=== PATIENT | female | born 1985 | race Caucasian/White ===

== ENCOUNTER 2021-09-27 08:37 | Emergency (ER) | payer MEDICAID ==
[2021-09-27 09:18] LABS: BASOPHILS # (AUTO) 0.1 10^3/uL (0.0-0.1); BASOPHILS % (AUTO) 0.6 %; EOSINOPHILS # (AUTO) 0.1 10^3/uL (0.0-0.7); EOSINOPHILS % (AUTO) 0.7 %; HCT - HEMATOCRIT 41.3 % (37.0-47.0); LYMPHOCYTES # (AUTO) 2.5 10^3/uL (1.5-3.5); LYMPHOCYTES % (AUTO) 29.6 %; MEAN CORPUSCULAR HEMOGLOBIN 31.2 pg (27.0-31.0); MEAN CORPUSCULAR HGB CONC 33.9 g/dL (32.0-36.0); MEAN PLATELET VOLUME 10.2 fL (7.9-10.8); MONOCYTES # (AUTO) 0.6 10^3/uL (0.0-1.0); MONOCYTES % (AUTO) 6.5 %; NEUTROPHILS # (AUTO) 5.3 10^3/uL (1.5-6.6); NEUTROPHILS % (AUTO) 62.4 %; PLT - PLATELET COUNT 320 10^3/uL (130-450); RED BLOOD COUNT 4.49 10^6/uL (4.20-5.40); RED CELL DISTRIBUTION WIDTH 12.7 % (12.0-15.0); WHITE BLOOD COUNT 8.5 x10^3/uL (4.8-10.8)
[2021-09-27 09:28] LABS: CALCIUM 9.2 mg/dL (8.5-10.3); CREATININE 0.5 mg/dL (0.4-1.0); POTASSIUM 3.7 mmol/L (3.5-5.0)
--- NOTE | 2021-09-27 09:33 | ED Physician Documentation ---
PD HPI FEMALE - Stated complaint Stated Complaint: DIZZY/SPOTTING - Chief complaint Chief Complaint: Abd Pain - History obtained from History obtained from: Patient - History of Present Illness Timing - onset: Last night Timing - details: Abrupt onset, Still present (having lower abd cramping and vaginal bleeding (small clots). Concerned about miscarriage. Recent Dx with po sitive by urine test. LMP 08/16/21 per pateint.) Associated symptoms: Pelvic pain, Vaginal bleeding. No: Fever, Back pain, Vaginal discharge, Dysuria Contributing factors: OB-CHECKER/STOCKER History: G (2), P (0), Miscarriage(s) (1 at 20 weeks due to incompetent cervix.) Recently seen: Clinic (home preg test positive and seen at clinic with confirmed urine preg test. No Rx.) Review of Systems Constitutional: denies: Fever Nose: denies: Rhinorrhea / runny nose, Congestion Throat: denies: Sore throat Respiratory: denies: Cough GI: reports: Abdominal Pain. denies: Nausea, Vomiting, Diarrhea : reports: Vaginal bleeding, Now EGA (4). denies: Dysuria, Discharge Neurologic: denies: Generalized weakness, Near syncope PD PAST MEDICAL HISTORY - Past Medical History Cardiovascular: None Respiratory: None Endocrine/Autoimmune: None CHECKER/STOCKER: None - Present Medications Home Medications: Ambulatory Orders Medication Instructions Recorded Confirmed Melatonin 3 mg PO HS 09/27/21 09/27/21 Ondansetron Odt [Zofran] 4 mg TL Q6H PRN #20 tablet 09/27/21 diphenhydrAMINE [Benadryl] 25 - 50 mg PO HS 09/27/21 09/27/21 - Allergies Allergies/Adverse Reactions: Allergies Allergy/AdvReac Type Severity Reaction Status Date / Time No Known Drug Allergies Allergy Verified 09/27/21 08:43 PD ED PE NORMAL - Vitals Vital signs reviewed: Yes - General General: Alert and oriented X 3, No acute distress, Well developed/nourished - Abdomen Abdomen: Normal bowel sounds, Soft, Non tender, Non distended - Female Female : Deferred - Back Back: No CVA TTP - Derm Derm: Normal color - Neuro Neuro: Alert and oriented X 3, No motor deficit, Normal speech Results - Vitals Vitals: Vital Signs - 24 hr 09/27/21 09/27/21 08:44 11:24 Temperature 36.3 C L 37.1 C Heart Rate 110 H 111 H Respiratory 20 18 Rate Blood Pressure 138/84 H 126/93 H O2 Saturation 98 98 Oxygen O2 Source Room air - Labs Labs: Laboratory Tests 09/27/21 09/27/21 09/27/21 09:11 09:11 09:11 WBC 8.5 RBC 4.49 Hgb 14.0 Hct 41.3 MCV 92.0 MCH 31.2 H MCHC 33.9 RDW 12.7 Plt Count 320 MPV 10.2 Neut # (Auto) 5.3 Lymph # (Auto) 2.5 Wilkes # (Auto) 0.6 Eos # (Auto) 0.1 Baso # (Auto) 0.1 Absolute Nucleated RBC 0.00 Nucleated RBC % 0.0 Sodium 137 Potassium 3.7 Chloride 102 Carbon Dioxide 26 Anion Gap 9.0 BUN 8 Creatinine 0.5 Estimated GFR (MDRD) 138 Glucose 106 H Calcium 9.2 HCG, Quant 87782.00 Urine Color Urine Clarity Urine pH Ur Specific [place] Urine Protein Urine Glucose (UA) Urine Ketones Urine Occult Blood Urine Nitrite Urine Bilirubin Urine Urobilinogen Ur Leukocyte Esterase Ur Microscopic Review Urine Culture Comments Blood Type 09/27/21 09/27/21 09:11 10:13 WBC RBC Hgb Hct MCV MCH MCHC RDW Plt Count MPV Neut # (Auto) Lymph # (Auto) [place] # (Auto) Eos # (Auto) Baso # (Auto) Absolute Nucleated RBC Nucleated RBC % Sodium Potassium Chloride Carbon Dioxide Anion Gap BUN Creatinine Estimated GFR (MDRD) Glucose Calcium HCG, Quant Urine Color YELLOW Urine Clarity CLEAR Urine pH 6.0 Ur Specific [place] >=1.030 H Urine Protein NEGATIVE Urine Glucose (UA) NEGATIVE Urine Ketones NEGATIVE Urine Occult Blood TRACE-INTA Urine Nitrite NEGATIVE Urine Bilirubin NEGATIVE Urine Urobilinogen 0.2 (NORMAL) Ur Leukocyte Esterase NEGATIVE Ur Microscopic Review NOT INDICATED Urine Culture Comments NOT INDICATED Blood Type O POSITIVE - Rads (name of study) OB U/S Radiology: Prelim report reviewed (6w1d live IUP with visible heart beat.), See rad report PD MEDICAL DECISION MAKING - ED course Complexity details: reviewed results, re-evaluated patient (she declined meds here, offered Tylenol. ), considered differential, d/w patient Departure - Departure Disposition: 01 Home, Self Care Clinical Impression: Vaginal bleeding affecting early Qualifiers: Weeks of gestation: less than 8 weeks Qualified Code(s): Z3A.01 - Less than 8 weeks gestation of Condition: Stable Record reviewed to determine appropriate education?: Yes Follow-Up: Blanca Soriano MD [Provider Admit Priv/Credential] - Prescriptions: Ondansetron Odt [Zofran] 4 mg TL Q6H PRN #20 tablet PRN Reason: Nausea / Vomiting Comments: 70701 quantitative HCG. Blood type O-positive. Your ultrasound shows a viable intrauterine that appears at 6 weeks 2 days. This point we would see how you do with your . Many pregnancies will have some bleeding and cramps associated with it and continue on to a normal full . There is the possibility of this being an early miscarriage. Tylenol if needed for pains every 4-6 hours. Use ondansetron if needed for nausea. Continue with your vitamin. Follow-up with [facility] in [place], call for an appointment. Also provided the [facility] numbers here associated with our facility. Recheck if worsening pain bleeding fever or other concerns. Otherwise follow-up with [facility] in the next week. Discharge Date/Time: 09/27/21 11:46
[2021-09-27 10:25] LABS: BILIRUBIN,URINE NEGATIVE (NEGATIVE); GLUCOSE, URINE (UA) NEGATIVE (NEGATIVE); KETONES,URINE (UA) NEGATIVE (NEGATIVE); LEUKOCYTE ESTERASE, URINE NEGATIVE (NEGATIVE); NITRITE,URINE NEGATIVE (NEGATIVE); OCCULT BLOOD,URINE TRACE-INTA (NEGATIVE); PROTEIN,URINE NEGATIVE (NEGATIVE); UROBILINOGEN,URINE 0.2 (NORMAL) E.U./dL (NORMAL)
[2021-09-27 10:26] LABS: CLARITY,URINE CLEAR (CLEAR)
[2021-09-27 11:24] VITALS: BP 126/93
--- NOTE | 2021-09-27 11:31 | Ultrasound Report ---
PROCEDURE: OB First Trimester w/TV INDICATIONS: Preg / vaginal bleeding OUTSIDE/PRIOR DATING DATA: Last menstrual period (LMP): August 11, 2021. LMP-based estimated date of delivery (WAYNE): May 18, 2022. First dating scan (date and location): [facility]; September 27, 2021. Estimated date of delivery (WAYNE) from first dating scan: May 22, 2022. The below data below was generated using the ultrasound WAYNE of May 22, 2022 TECHNIQUE: Real-time scanning was performed of the fetus and maternal pelvic organs, with image documentation. Endovaginal scanning was also performed to better visualize the fetus and maternal ovaries. COMPARISON: None. FINDINGS: Embryo: The average crown-rump length measures 4.6 mm, compatible with a 6 week, 1 day gestation. An 18.4 x 10.2 x 11.4 mm hypoechoic area is seen adjacent to the gestational sac, most consistent wit h a subchorionic hemorrhage. Heart rate: 1-27 days per minute Measurement variability in dating: +/- 4 weeks by LMP, +/- 7 days by mean sac diameter (use before 6 weeks gestation if crown-rump length not able to be measured), +/- 5 days by crown-rump length (6-12 weeks gestation). Maternal organs: Thick-walled echogenic lesion within the left ovary, measuring up to 2.2 cm, most co nsistent with a corpus luteum. A exophytic, hypoechoic lesion is also seen within the left ovary, dean suring up to 2.6 cm, compatible with a cyst. Cervix: Closed. Uterus: Hypoechoic lesion in the posterior aspect of the uterus, measuring up to 1.3 cm, likely refle cting a fibroid. IMPRESSION: 1. Early live single intrauterine gestation as detailed above. Reviewed by: Ryan Veliz MD on 09/27/2021 11:30 AM PST Approved by: Ryan Veliz MD on 09/27/2021 11:30 AM PST Station ID: [id number]
== END 2021-09-27 11:46 | disposition home or self-care (01) ==
LOC: ED 08:37
DX: O20.9 Hemorrhage in early pregnancy, unspecified (principal); Z3A.01 Less than 8 weeks gestation of pregnancy
CPT/HCPCS: 36415; 80048; 81001; 81003; 84702; 85025; 86900; 86901; 87086; 99283; 99284